=== PATIENT | female | born 1955 | race Asian ===

== ENCOUNTER 2024-03-26 07:04 | Day surgery (SDC) | payer BC ==
[2024-03-26] MEDS ORDERED: LIDOCAINE HCL 1% 50 MG/5 ML VL PF IJ ONE (07:05)
[2024-03-26] MEDS ORDERED: Sodium Chloride 0.9(Preservative Free) 10 ML IJ ONE (07:05)
[2024-03-26] MEDS ORDERED: Depo-Medrol 40 MG/ML IM ONE (07:05)
[2024-03-26] MEDS ORDERED: DIPRIVAN 200 MG/20 ML IV ONE (08:15)
--- NOTE | 2024-03-26 09:22 | XRAY ---
13 seconds of fluoroscopy was used in surgery for a lumbar ADELAIDA.
[2024-03-26] MEDS ORDERED: Lactated Ringers 1,000 ML IV ONE (10:05)
--- NOTE | 2024-03-26 10:06 | XRAY ---
Indication: Lumbar ADELAIDA. Intraoperative fluoroscopy provided for 13 seconds. 4 digital spot images submitted for interpretation demonstrates posterior needle tip projecting posterior to last lumbar segment. Small amount of contrast injected for needle tip placement. Correlate with intraoperative findings/report.
== END 2024-03-26 09:05 | disposition home or self-care (01) ==
LOC: SDC-PAIN 07:04 → SDC 07:04
PROVIDERS: ATTEND Psychiatry & Neurology Pain Medicine
DX: M54.16 Radiculopathy, lumbar region (principal)
CPT/HCPCS: 62323; 72100; 77003; J2001; J2704; Q9966